=== PATIENT | male | born 1930 | race Caucasian/White ===

== ENCOUNTER → 2016-12-23 | Outpatient (CLI) | payer MEDICARE ==
[~2016-12-23] MED LIST: BISACODYL5 MG PO; COUMADIN3 MG GT; DULCOLAX5 MG PO; FEOSOL325 MG PO; MEN'S MULTI-VI1 EACH PO; MIRAPEX0.5 MG PO; MOTRIN400 MG GT; NORVASC5 MG GT; ONE DAILY1 EAC3 PO; OXYCODONE HCL5 MG GT; PRILOSEC20 MG PO; PROSCAR5 MG PO; Proscar PO; Protonix PO; SENNA LAXATIVE25 MG GT; SINEMET 25-1001 EACH GT; SINEMET 25-1001 EACH PO; TYLENOL EXTRA500 MG PO; TYLENOL REGULA325 MG GT
== END | disposition home or self-care (01) ==
LOC: CDC 10:06
DX: R00.1 Bradycardia, unspecified (principal); R94.31 Abnormal electrocardiogram [ECG] [EKG]; C67.9 Malignant neoplasm of bladder, unspecified
CPT/HCPCS: 93000

== ENCOUNTER 2017-05-29 11:37 | Inpatient (IN) | payer OTHER, MEDICARE ==
[~2017-05-29] VITALS: Ht 175.3 cm; Wt 78.5 kg
[2017-05-29] MEDS ORDERED: OMEPRAZOLE20 MG PO (11:49)
[2017-05-29] MEDS ORDERED: METOPROLOL TART25 MG PO (11:50)
[2017-05-29] MEDS ORDERED: COZAAR25 MG PO (11:52)
[2017-05-29 12:46] LABS: HEMATOCRIT 30.9 % (38.0-50.0); MCH 29.7 PG (29.0-34.0); MCHC 32.4 G/DL (30.0-36.0); MCV 91.7 FL (86-99); MEAN PLAT.VOLUME 9.8 uM^3 (9.0-12.4); PLATELET COUNT 149 K/uL (156-360); RBC DIS.WIDTH-CV 16.1 % (11.8-14.6); RBC DIS.WIDTH-SD 54.4 % (39-53); RED BLOOD COUNT 3.37 M/uL (4.00-5.50); WHITE BLOOD COUNT 5.4 K/uL (4.1-10.2)
[2017-05-29 12:52] LABS: PROTHROMBIN TIME 11.1 SEC (10.2-12.9)
[2017-05-29 12:57] LABS: CHLORIDE 104 mEq/L (99-109); POTASSIUM 4.1 mEq/L (3.7-5.4); SODIUM 135 mEq/L (136-147)
[2017-05-29 13:00] LABS: GLUCOSE 149 mg/dL (70-99)
[2017-05-29 13:01] LABS: ANION GAP 8 MEQ/L (2-14); TOTAL BILIRUBIN 0.7 mg/dL (0.0-1.0)
[2017-05-29 13:03] LABS: ALKALINE PHOSPHATASE 88 IU/L (3-129); GFR ESTIMATE (CALCULATED) 51 mL/min/
[2017-05-29 13:04] LABS: UREA NITROGEN (BUN) 49 mg/dL (9-23)
[2017-05-29 16:18] VITALS: BP 135/72
[2017-05-29 19:23] VITALS: BP 114/68
[2017-05-30 00:10] VITALS: BP 110/60
[2017-05-30 04:25] VITALS: BP 95/54
[2017-05-30 06:26] LABS: HEMATOCRIT 27.3 % (38.0-50.0); MCH 30.5 PG (29.0-34.0); MCV 92.5 FL (86-99); MEAN PLAT.VOLUME 10.2 uM^3 (9.0-12.4); PLATELET COUNT 134 K/uL (156-360); RBC DIS.WIDTH-CV 16.4 % (11.8-14.6); RBC DIS.WIDTH-SD 56.1 % (39-53); RED BLOOD COUNT 2.95 M/uL (4.00-5.50); WHITE BLOOD COUNT 6.1 K/uL (4.1-10.2)
[2017-05-30 06:59] LABS: ANION GAP 4 MEQ/L (2-14); CHLORIDE 103 MEQ/L (99-109); GFR ESTIMATE (CALCULATED) > 59 mL/min/; POTASSIUM 4.1 MEQ/L (3.7-5.4); SAMPLE HEMOLYSIS CHECK 0; SAMPLE ICTERIC CHECK 0; SAMPLE LIPEMIA CHECK 0; SODIUM 132 MEQ/L (136-147); UREA NITROGEN (BUN) 39 mg/dL (9-23)
[2017-05-30 07:12] LABS: GLUCOSE 109 mg/dL (70-99)
[2017-05-30 08:00] VITALS: BP 105/55
[2017-05-30 08:42] LABS: POINT-OF-CARE METER ID UU14117124
[2017-05-30 16:06] VITALS: BP 117/60
[2017-05-30 19:24] VITALS: BP 103/56
[2017-05-30 21:00] VITALS: BP 108/59
[2017-05-31 00:33] VITALS: BP 97/54
[2017-05-31 04:35] VITALS: BP 139/61
[2017-05-31 06:45] LABS: EOSINOPHIL (%) 0.4 % (0-5); HEMATOCRIT 25.4 % (38.0-50.0); IMMATURE GRANULOCYTE (%) 0.5 % (0.0-0.7); INSTRUMENT ABS NEUTROPHIL CT 6.5 K/uL; LYMPHOCYTE COUNT 0.5 K/uL (1.0-2.8); MCH 29.2 PG (29.0-34.0); MCHC 31.5 G/DL (30.0-36.0); MCV 92.7 FL (86-99); MEAN PLAT.VOLUME 10.2 uM^3 (9.0-12.4); MONOCYTE (%) 10.5 % (3-12); MONOCYTE COUNT 0.8 K/uL (0-0.8); NEUTROPHIL (%) 81.9 % (45-76); NEUTROPHIL COUNT 6.5 K/uL (1.8-6.4); PLATELET COUNT 122 K/uL (156-360); RBC DIS.WIDTH-CV 16.3 % (11.8-14.6); RBC DIS.WIDTH-SD 55.8 % (39-53); RED BLOOD COUNT 2.74 M/uL (4.00-5.50)
[2017-05-31 07:11] LABS: ANION GAP 5 MEQ/L (2-14); CHLORIDE 105 MEQ/L (99-109); GFR ESTIMATE (CALCULATED) > 59 mL/min/; GLUCOSE 126 mg/dL (70-99); POTASSIUM 4.4 MEQ/L (3.7-5.4); SAMPLE HEMOLYSIS CHECK 0; SAMPLE ICTERIC CHECK 0; SAMPLE LIPEMIA CHECK 0; SODIUM 136 MEQ/L (136-147); UREA NITROGEN (BUN) 26 mg/dL (9-23)
[2017-05-31 08:34] VITALS: BP 83/46
[2017-05-31 15:38] VITALS: BP 108/57
[2017-05-31 19:38] VITALS: BP 99/52
[2017-06-01] VITALS (8 sets, daily range): BP systolic 106–123; BP diastolic 53–69
[2017-06-01 06:30] LABS: HEMATOCRIT 24.5 % (38.0-50.0); MCHC 32.2 G/DL (30.0-36.0); MCV 93.2 FL (86-99); MEAN PLAT.VOLUME 10.7 uM^3 (9.0-12.4); PLATELET COUNT 130 K/uL (156-360); RBC DIS.WIDTH-CV 16.4 % (11.8-14.6); RBC DIS.WIDTH-SD 56.4 % (39-53); RED BLOOD COUNT 2.63 M/uL (4.00-5.50); WHITE BLOOD COUNT 6.7 K/uL (4.1-10.2)
[2017-06-02 03:39] VITALS: BP 99/52
[2017-06-02 05:15] VITALS: BP 112/68
[2017-06-02 05:15] LABS: HEMATOCRIT 23.3 % (38.0-50.0); MCH 30.3 PG (29.0-34.0); MCHC 32.6 G/DL (30.0-36.0); MCV 92.8 FL (86-99); MEAN PLAT.VOLUME 10.6 uM^3 (9.0-12.4); PLATELET COUNT 137 K/uL (156-360); RBC DIS.WIDTH-CV 16.5 % (11.8-14.6); RBC DIS.WIDTH-SD 56.4 % (39-53); RED BLOOD COUNT 2.51 M/uL (4.00-5.50); WHITE BLOOD COUNT 5.7 K/uL (4.1-10.2)
[2017-06-02 05:41] LABS: ANION GAP 6 MEQ/L (2-14); CHLORIDE 106 MEQ/L (99-109); GFR ESTIMATE (CALCULATED) > 59 mL/min/; GLUCOSE 103 mg/dL (70-99); SAMPLE HEMOLYSIS CHECK 0; SAMPLE ICTERIC CHECK 0; SAMPLE LIPEMIA CHECK 0; SODIUM 138 MEQ/L (136-147); UREA NITROGEN (BUN) 31 mg/dL (9-23)
[2017-06-02 07:00] VITALS: BP 126/68
[2017-06-02] MEDS ORDERED: FERROUS SULFAT325 MG PO (10:43)
[2017-06-02] MEDS ORDERED: DOCUSATE SODIU100 MG PO (10:45)
[2017-06-02] MEDS ORDERED: POLYETHYLENE GL17 GM PO (10:45)
[2017-06-02 10:47] LABS: IRON 17 MCG/DL (35-150)
[2017-06-02] MEDS ORDERED: HEPARIN SO5000 UNIT4 SC (10:52)
[2017-06-02] MEDS ORDERED: ENDOCET 5-3251 EACH PO (10:52)
[2017-06-02 12:05] VITALS: BP 126/64
== END 2017-06-02 15:40 | DRG 536 ==
LOC: EME → EDBD 11:37 → EME 11:37 → EDOF 14:54 → 3EAST 14:54 → ENRESERV 14:55 → 3EAST 16:02
PROVIDERS: Emergency Medicine; Internal Medicine
PROC: 0SS934Z Reposition Right Hip Joint with Internal Fixation Device, Percutaneous Approach (ICD-10-PCS; principal; 2017-05-30)
DX: S72.141A Displaced intertrochanteric fracture of right femur, initial encounter for closed fracture (principal); W01.0XXA Fall on same level from slipping, tripping and stumbling without subsequent striking against object, initial encounter; D50.9 Iron deficiency anemia, unspecified; Z95.0 Presence of cardiac pacemaker; I12.9 Hypertensive chronic kidney disease with stage 1 through stage 4 chronic kidney disease, or unspecified chronic kidney disease; Y92.89 Other specified places as the place of occurrence of the external cause; G20 Parkinson's disease; Z85.51 Personal history of malignant neoplasm of bladder; N40.0 Benign prostatic hyperplasia without lower urinary tract symptoms; I35.0 Nonrheumatic aortic (valve) stenosis; I27.2 Other secondary pulmonary hypertension; Z96.652 Presence of left artificial knee joint; N18.2 Chronic kidney disease, stage 2 (mild)
CPT/HCPCS: 71010; 73502; 76000; 80048; 80053; 82607; 82746; 82948; 83540; 84466; 85025; 85027; 85610; 86341 90; 86850; 86900; 86901; 88305; 93005; 97530 GP; 99281; 99285; C1713; J0131; J0690; J1100; J1170; J1644; J2270; J2405; J2710; J3010; J7030

== ENCOUNTER 2017-08-17 21:52 | Inpatient (IN) | payer OTHER, MEDICARE ==
[~2017-08-17] VITALS: Ht 175.3 cm; Wt 86.0 kg
[~2017-08-17 21:52] MED LIST changes: +COZAAR25 MG PO; +DOCUSATE SODIU100 MG PO; +ENDOCET 5-3251 EACH PO; +FERROUS SULFAT325 MG PO; +HEPARIN SO5000 UNIT4 SC; +METOPROLOL TART25 MG PO; +OMEPRAZOLE20 MG PO; +POLYETHYLENE GL17 GM PO
[2017-08-17 23:30] LABS: EOSINOPHIL (%) 0.4 % (0-5); HEMATOCRIT 29.3 % (38.0-50.0); IMMATURE GRANULOCYTE (%) 0.4 % (0.0-0.7); INSTRUMENT ABS NEUTROPHIL CT 8.7 K/uL; LYMPHOCYTE COUNT 0.7 K/uL (1.0-2.8); MCH 31.3 PG (29.0-34.0); MCHC 32.8 G/DL (30.0-36.0); MEAN PLAT.VOLUME 10.2 uM^3 (9.0-12.4); MONOCYTE (%) 7.1 % (3-12); MONOCYTE COUNT 0.7 K/uL (0-0.8); NEUTROPHIL (%) 85.3 % (45-76); NEUTROPHIL COUNT 8.7 K/uL (1.8-6.4); PLATELET COUNT 171 K/uL (156-360); RBC DIS.WIDTH-CV 14.6 % (11.8-14.6); RBC DIS.WIDTH-SD 51.7 % (39-53); RED BLOOD COUNT 3.07 M/uL (4.00-5.50); WHITE BLOOD COUNT 10.2 K/uL (4.1-10.2)
[2017-08-17 23:37] LABS: MCV 95.4 FL (86-99)
[2017-08-17 23:39] LABS: INTER. NORMALIZED RATIO 1.1
[2017-08-17 23:42] LABS: CHLORIDE 107 mEq/L (99-109); POTASSIUM 4.2 mEq/L (3.7-5.4); SODIUM 137 mEq/L (136-147)
[2017-08-17 23:44] LABS: GLUCOSE 114 mg/dL (70-99)
[2017-08-17 23:45] LABS: ANION GAP 8 MEQ/L (2-14)
[2017-08-17 23:46] LABS: TOTAL BILIRUBIN 0.4 mg/dL (0.0-1.0)
[2017-08-17 23:47] LABS: ALKALINE PHOSPHATASE 111 IU/L (3-129)
[2017-08-17 23:48] LABS: GFR ESTIMATE (CALCULATED) 44 mL/min/
[2017-08-17 23:49] LABS: UREA NITROGEN (BUN) 52 mg/dL (9-23)
[2017-08-18] VITALS (10 sets, daily range): BP systolic 88–121; BP diastolic 53–68
[2017-08-18] MEDS ORDERED: FERROUS SULFAT325 MG PO (00:33)
[2017-08-18] MEDS ORDERED: CARBIDOPA/LEVO1 EACH PO (00:34)
[2017-08-18] MEDS ORDERED: FINASTERIDE5 MG PO (00:34)
[2017-08-18] MEDS ORDERED: PRAMIPEXOLE DI0.5 MG PO (00:37)
[2017-08-18 04:48] LABS: MCH 30.7 PG (29.0-34.0); MCV 95.8 FL (86-99); MEAN PLAT.VOLUME 10.4 uM^3 (9.0-12.4); PLATELET COUNT 144 K/uL (156-360); RBC DIS.WIDTH-CV 14.7 % (11.8-14.6); RBC DIS.WIDTH-SD 51.8 % (39-53); RED BLOOD COUNT 2.61 M/uL (4.00-5.50); WHITE BLOOD COUNT 7.5 K/uL (4.1-10.2)
[2017-08-18 05:01] LABS: CHLORIDE 111 mEq/L (99-109); POTASSIUM 4.1 mEq/L (3.7-5.4); SODIUM 140 mEq/L (136-147)
[2017-08-18 05:02] LABS: GLUCOSE 114 mg/dL (70-99)
[2017-08-18 05:04] LABS: ANION GAP 8 MEQ/L (2-14)
[2017-08-18 05:06] LABS: GFR ESTIMATE (CALCULATED) 56 mL/min/
[2017-08-18 05:07] LABS: UREA NITROGEN (BUN) 46 mg/dL (9-23)
[2017-08-18 06:49] LABS: POINT-OF-CARE METER ID UU14314088
[2017-08-18 11:55] LABS: POINT-OF-CARE METER ID UU14314088
[2017-08-18 12:59] LABS: ADD MIUA? YES; BILIRUBIN NEGATIVE; BLOOD LARGE; COLOR YELLOW ((YELLOW)); GLUCOSE (STRIP) NEGATIVE; KETONES NEGATIVE; LEUKOCYTES TRACE; NITRITE NEGATIVE; PROTEIN (STRIP) NEGATIVE; SPECIFIC GRAVITY 1.019 (1.000-1.030); UROBILINOGEN 0.2 MG/DL (0.2-1.0)
[2017-08-18 13:31] LABS: BACTERIA RARE /HPF; BUDDING YEAST RARE; EPITHELIAL CELLS RARE /HPF; MUCUS TRACE /LPF; RED BLOOD CELLS 40-50 /HPF (0-5); UCUL ADDED? YES
[2017-08-18 20:23] LABS: HEMATOCRIT 28.9 % (38.0-50.0); MCV 93.2 FL (86-99)
[2017-08-19] VITALS (7 sets, daily range): BP systolic 85–111; BP diastolic 50–58
[2017-08-19 05:29] LABS: EOSINOPHIL (%) 0.2 % (0-5); IMMATURE GRANULOCYTE (%) 0.5 % (0.0-0.7); INSTRUMENT ABS NEUTROPHIL CT 6.9 K/uL; LYMPHOCYTE COUNT 0.7 K/uL (1.0-2.8); MCH 30.1 PG (29.0-34.0); MCHC 32.7 G/DL (30.0-36.0); MCV 92.2 FL (86-99); MEAN PLAT.VOLUME 10.6 uM^3 (9.0-12.4); MONOCYTE (%) 10.5 % (3-12); MONOCYTE COUNT 0.9 K/uL (0-0.8); NEUTROPHIL COUNT 6.9 K/uL (1.8-6.4); PLATELET COUNT 116 K/uL (156-360); RBC DIS.WIDTH-CV 17.4 % (11.8-14.6); RBC DIS.WIDTH-SD 58.9 % (39-53); RED BLOOD COUNT 2.82 M/uL (4.00-5.50); WHITE BLOOD COUNT 8.6 K/uL (4.1-10.2)
[2017-08-19 05:51] LABS: ALKALINE PHOSPHATASE 73 IU/L (3-129); ANION GAP 7 MEQ/L (2-14); CHLORIDE 113 MEQ/L (99-109); GFR ESTIMATE (CALCULATED) > 59 mL/min/; GLUCOSE 100 mg/dL (70-99); POTASSIUM 4.3 MEQ/L (3.7-5.4); SAMPLE HEMOLYSIS CHECK 0; SAMPLE ICTERIC CHECK 0; SAMPLE LIPEMIA CHECK 0; SODIUM 142 MEQ/L (136-147); TOTAL BILIRUBIN 1.2 MG/DL (0.0-1.0); UREA NITROGEN (BUN) 34 mg/dL (9-23)
[2017-08-20] VITALS (8 sets, daily range): BP systolic 89–113; BP diastolic 52–67
[2017-08-20 06:08] LABS: BASOPHIL COUNT 0.1 K/uL (0-0.1); EOSINOPHIL (%) 1.5 % (0-5); EOSINOPHIL COUNT 0.1 K/uL (0-0.3); HEMATOCRIT 23.7 % (38.0-50.0); IMMATURE GRANULOCYTE (%) 0.6 % (0.0-0.7); IMMATURE GRANULOCYTE COUNT 0.1 K/uL; INSTRUMENT ABS NEUTROPHIL CT 7.1 K/uL; LYMPHOCYTE COUNT 0.6 K/uL (1.0-2.8); MCH 29.6 PG (29.0-34.0); MCHC 31.6 G/DL (30.0-36.0); MCV 93.7 FL (86-99); MEAN PLAT.VOLUME 11.1 uM^3 (9.0-12.4); MONOCYTE (%) 10.3 % (3-12); MONOCYTE COUNT 0.9 K/uL (0-0.8); NEUTROPHIL (%) 80.3 % (45-76); NEUTROPHIL COUNT 7.1 K/uL (1.8-6.4); PLATELET COUNT 106 K/uL (156-360); RBC DIS.WIDTH-CV 16.6 % (11.8-14.6); RBC DIS.WIDTH-SD 57.7 % (39-53); RED BLOOD COUNT 2.53 M/uL (4.00-5.50); WHITE BLOOD COUNT 8.8 K/uL (4.1-10.2)
[2017-08-20 06:43] LABS: ALKALINE PHOSPHATASE 69 IU/L (3-129); ANION GAP 6 MEQ/L (2-14); CHLORIDE 110 MEQ/L (99-109); GFR ESTIMATE (CALCULATED) > 59 mL/min/; GLUCOSE 127 mg/dL (70-99); SAMPLE HEMOLYSIS CHECK 0; SAMPLE ICTERIC CHECK 0; SAMPLE LIPEMIA CHECK 0; SODIUM 139 MEQ/L (136-147); UREA NITROGEN (BUN) 34 mg/dL (9-23)
[2017-08-20 06:58] LABS: TOTAL BILIRUBIN 0.9 MG/DL (0.0-1.0)
[2017-08-20 18:45] LABS: HEMATOCRIT 24.4 % (38.0-50.0); MCV 91.4 FL (86-99)
[2017-08-21] VITALS (14 sets, daily range): BP systolic 82–123; BP diastolic 42–66
[2017-08-21 04:39] LABS: EOSINOPHIL (%) 2.7 % (0-5); EOSINOPHIL COUNT 0.2 K/uL (0-0.3); HEMATOCRIT 22.6 % (38.0-50.0); IMMATURE GRANULOCYTE (%) 0.6 % (0.0-0.7); INSTRUMENT ABS NEUTROPHIL CT 4.9 K/uL; LYMPHOCYTE COUNT 0.9 K/uL (1.0-2.8); MCHC 33.2 G/DL (30.0-36.0); MCV 90.4 FL (86-99); MEAN PLAT.VOLUME 10.5 uM^3 (9.0-12.4); MONOCYTE (%) 9.5 % (3-12); MONOCYTE COUNT 0.6 K/uL (0-0.8); NEUTROPHIL (%) 73.3 % (45-76); NEUTROPHIL COUNT 4.9 K/uL (1.8-6.4); PLATELET COUNT 87 K/uL (156-360); RBC DIS.WIDTH-CV 17.2 % (11.8-14.6); RBC DIS.WIDTH-SD 57.5 % (39-53); WHITE BLOOD COUNT 6.7 K/uL (4.1-10.2)
[2017-08-21 04:53] LABS: CHLORIDE 112 mEq/L (99-109); POTASSIUM 3.6 mEq/L (3.7-5.4); SODIUM 139 mEq/L (136-147)
[2017-08-21 04:56] LABS: GLUCOSE 106 mg/dL (70-99)
[2017-08-21 04:57] LABS: ANION GAP 3 MEQ/L (2-14)
[2017-08-21 04:59] LABS: ALKALINE PHOSPHATASE 89 IU/L (3-129); GFR ESTIMATE (CALCULATED) > 59 mL/min/ (58.99-99999)
[2017-08-21 05:00] LABS: UREA NITROGEN (BUN) 29 mg/dL (9-23)
[2017-08-21 05:04] LABS: TOTAL BILIRUBIN 1.2 mg/dL (0.0-1.0)
[2017-08-21 10:30] LABS: INTER. NORMALIZED RATIO 1.1; PROTHROMBIN TIME 12.7 SEC (10.2-12.9)
[2017-08-21 10:33] LABS: PTT 31.1 SEC (25-37)
[2017-08-21 16:08] LABS: HEMATOCRIT 25.8 % (38.0-50.0); MCH 29.8 PG (29.0-34.0); MCHC 32.6 G/DL (30.0-36.0); MCV 91.5 FL (86-99); MEAN PLAT.VOLUME 10.6 uM^3 (9.0-12.4); RBC DIS.WIDTH-CV 16.8 % (11.8-14.6); RBC DIS.WIDTH-SD 56.8 % (39-53); RED BLOOD COUNT 2.82 M/uL (4.00-5.50); WHITE BLOOD COUNT 6.5 K/uL (4.1-10.2)
[2017-08-21 16:30] LABS: ANION GAP 7 MEQ/L (2-14); CHLORIDE 107 MEQ/L (99-109); GFR ESTIMATE (CALCULATED) > 59 mL/min/ (58.99-99999); GLUCOSE 107 mg/dL (70-99); POTASSIUM 3.9 MEQ/L (3.7-5.4); SAMPLE HEMOLYSIS CHECK 0; SAMPLE ICTERIC CHECK 0; SAMPLE LIPEMIA CHECK 0; SODIUM 137 MEQ/L (136-147); UREA NITROGEN (BUN) 33 mg/dL (9-23)
[2017-08-21 17:16] LABS: PLATELET COUNT 122 K/uL (156-360)
[2017-08-22 04:14] VITALS: BP 129/68
[2017-08-22 05:49] LABS: EOSINOPHIL (%) 3.7 % (0-5); EOSINOPHIL COUNT 0.2 K/uL (0-0.3); IMMATURE GRANULOCYTE (%) 0.2 % (0.0-0.7); INSTRUMENT ABS NEUTROPHIL CT 4.7 K/uL; LYMPHOCYTE COUNT 0.8 K/uL (1.0-2.8); MCH 30.4 PG (29.0-34.0); MCHC 33.1 G/DL (30.0-36.0); MCV 91.9 FL (86-99); MEAN PLAT.VOLUME 11.2 uM^3 (9.0-12.4); MONOCYTE COUNT 0.5 K/uL (0-0.8); NEUTROPHIL (%) 75.5 % (45-76); NEUTROPHIL COUNT 4.7 K/uL (1.8-6.4); PLATELET COUNT 131 K/uL (156-360); RBC DIS.WIDTH-CV 16.6 % (11.8-14.6); RBC DIS.WIDTH-SD 55.9 % (39-53); RED BLOOD COUNT 2.83 M/uL (4.00-5.50); WHITE BLOOD COUNT 6.2 K/uL (4.1-10.2)
[2017-08-22 05:54] LABS: INTER. NORMALIZED RATIO 1.1; PROTHROMBIN TIME 12.5 SEC (10.2-12.9)
[2017-08-22 05:57] LABS: PTT 28.7 SEC (25-37)
[2017-08-22 06:17] LABS: ANION GAP 6 MEQ/L (2-14); CHLORIDE 107 MEQ/L (99-109); GFR ESTIMATE (CALCULATED) > 59 mL/min/ (58.99-99999); GLUCOSE 96 mg/dL (70-99); POTASSIUM 3.8 MEQ/L (3.7-5.4); SAMPLE HEMOLYSIS CHECK 0; SAMPLE ICTERIC CHECK 0; SAMPLE LIPEMIA CHECK 0; SODIUM 138 MEQ/L (136-147); UREA NITROGEN (BUN) 34 mg/dL (9-23)
[2017-08-22 06:19] LABS: ALKALINE PHOSPHATASE 116 IU/L (3-129); TOTAL BILIRUBIN 1.6 MG/DL (0.0-1.0)
[2017-08-22 09:00] VITALS: BP 121/64
[2017-08-22 11:50] VITALS: BP 132/69
[2017-08-22 15:26] VITALS: BP 137/74
[2017-08-22 19:10] VITALS: BP 110/58
[2017-08-22 23:17] VITALS: BP 123/71
[2017-08-23 04:00] VITALS: BP 131/71
[2017-08-23 05:57] LABS: EOSINOPHIL (%) 3.6 % (0-5); EOSINOPHIL COUNT 0.2 K/uL (0-0.3); IMMATURE GRANULOCYTE (%) 0.5 % (0.0-0.7); INSTRUMENT ABS NEUTROPHIL CT 4.4 K/uL; LYMPHOCYTE COUNT 0.8 K/uL (1.0-2.8); MCH 29.8 PG (29.0-34.0); MCHC 32.3 G/DL (30.0-36.0); MCV 92.2 FL (86-99); MEAN PLAT.VOLUME 10.6 uM^3 (9.0-12.4); MONOCYTE (%) 9.7 % (3-12); MONOCYTE COUNT 0.6 K/uL (0-0.8); NEUTROPHIL (%) 72.1 % (45-76); NEUTROPHIL COUNT 4.4 K/uL (1.8-6.4); PLATELET COUNT 145 K/uL (156-360); RBC DIS.WIDTH-CV 15.9 % (11.8-14.6); RBC DIS.WIDTH-SD 54.1 % (39-53); RED BLOOD COUNT 2.82 M/uL (4.00-5.50); WHITE BLOOD COUNT 6.1 K/uL (4.1-10.2)
[2017-08-23 06:07] LABS: INTER. NORMALIZED RATIO 2.2
[2017-08-23 06:10] LABS: PROTHROMBIN TIME 25.3 SEC (10.2-12.9); PTT 32.1 SEC (25-37)
[2017-08-23 06:21] LABS: ANION GAP 8 MEQ/L (2-14); CHLORIDE 106 MEQ/L (99-109); GFR ESTIMATE (CALCULATED) > 59 mL/min/ (58.99-99999); GLUCOSE 93 mg/dL (70-99); POTASSIUM 3.5 MEQ/L (3.7-5.4); SAMPLE HEMOLYSIS CHECK 0; SAMPLE ICTERIC CHECK 0; SAMPLE LIPEMIA CHECK 0; SODIUM 139 MEQ/L (136-147); UREA NITROGEN (BUN) 32 mg/dL (9-23)
[2017-08-23 08:40] VITALS: BP 118/70
[2017-08-23 11:53] VITALS: BP 135/65
[2017-08-23 17:05] VITALS: BP 108/56
[2017-08-23 20:30] VITALS: BP 124/67
[2017-08-23 23:51] VITALS: BP 139/75
[2017-08-24 03:55] VITALS: BP 137/70
[2017-08-24 07:57] LABS: INTER. NORMALIZED RATIO 3.1; PROTHROMBIN TIME 35.3 SEC (10.2-12.9)
[2017-08-24 08:17] VITALS: BP 128/62
[2017-08-24 09:31] LABS: HEMATOCRIT 29.4 % (38.0-50.0); MCH 29.8 PG (29.0-34.0); MCHC 32.3 G/DL (30.0-36.0); MCV 92.2 FL (86-99); RBC DIS.WIDTH-CV 15.5 % (11.8-14.6); RBC DIS.WIDTH-SD 52.7 % (39-53); RED BLOOD COUNT 3.19 M/uL (4.00-5.50); WHITE BLOOD COUNT 6.2 K/uL (4.1-10.2)
[2017-08-24 09:34] LABS: PLATELET COUNT 199 K/uL (156-360)
[2017-08-24 10:06] LABS: ANION GAP 8 MEQ/L (2-14); CHLORIDE 104 MEQ/L (99-109); GFR ESTIMATE (CALCULATED) > 59 mL/min/ (58.99-99999); GLUCOSE 112 mg/dL (70-99); POTASSIUM 3.9 MEQ/L (3.7-5.4); SAMPLE HEMOLYSIS CHECK 0; SAMPLE ICTERIC CHECK 0; SAMPLE LIPEMIA CHECK 0; SODIUM 137 MEQ/L (136-147); UREA NITROGEN (BUN) 35 mg/dL (9-23)
[2017-08-24 11:24] VITALS: BP 121/63
[2017-08-24 15:41] VITALS: BP 114/74
[2017-08-24 19:37] VITALS: BP 128/71
[2017-08-24 23:54] VITALS: BP 136/77
[2017-08-25 03:50] VITALS: BP 124/81
[2017-08-25 07:15] LABS: EOSINOPHIL (%) 3.4 % (0-5); EOSINOPHIL COUNT 0.2 K/uL (0-0.3); HEMATOCRIT 28.4 % (38.0-50.0); IMMATURE GRANULOCYTE (%) 0.4 % (0.0-0.7); INSTRUMENT ABS NEUTROPHIL CT 5.3 K/uL; LYMPHOCYTE COUNT 0.9 K/uL (1.0-2.8); MCH 30.1 PG (29.0-34.0); MCHC 32.4 G/DL (30.0-36.0); MCV 92.8 FL (86-99); MEAN PLAT.VOLUME 10.6 uM^3 (9.0-12.4); MONOCYTE (%) 8.3 % (3-12); MONOCYTE COUNT 0.6 K/uL (0-0.8); NEUTROPHIL (%) 74.9 % (45-76); NEUTROPHIL COUNT 5.3 K/uL (1.8-6.4); PLATELET COUNT 202 K/uL (156-360); RBC DIS.WIDTH-CV 15.6 % (11.8-14.6); RBC DIS.WIDTH-SD 52.4 % (39-53); RED BLOOD COUNT 3.06 M/uL (4.00-5.50); WHITE BLOOD COUNT 7.1 K/uL (4.1-10.2)
[2017-08-25 07:42] LABS: ANION GAP 8 MEQ/L (2-14); CHLORIDE 105 MEQ/L (99-109); GFR ESTIMATE (CALCULATED) > 59 mL/min/ (58.99-99999); GLUCOSE 86 mg/dL (70-99); POTASSIUM 3.6 MEQ/L (3.7-5.4); SAMPLE HEMOLYSIS CHECK 0; SAMPLE ICTERIC CHECK 0; SAMPLE LIPEMIA CHECK 0; SODIUM 138 MEQ/L (136-147); UREA NITROGEN (BUN) 38 mg/dL (9-23)
[2017-08-25 07:44] LABS: INTER. NORMALIZED RATIO 2.5; PROTHROMBIN TIME 28.9 SEC (10.2-12.9)
[2017-08-25 08:06] VITALS: BP 115/62
[2017-08-25 12:17] VITALS: BP 124/70
[2017-08-25] MEDS ORDERED: COUMADIN1 MG PO ×2 (14:36→14:47)
[2017-08-25] MEDS ORDERED: HYDROCODON-ACE1 EAC7 PO (14:41)
[2017-08-25] MEDS ORDERED: TYLENOL EXTRA500 MG PO (14:41)
== END 2017-08-25 16:33 | DRG 481 ==
LOC: EME → EDBD 21:52 → EME 21:52 → EDOF 08-18 01:29 → 4EAST 08-18 01:29 → ENRESERV 08-18 01:33 → 4EAST 08-18 03:24 → ENRESERV 08-23 09:47 → 3EAST 08-23 15:54
PROVIDERS: Anesthesiology; Emergency Medicine; Hospitalist; Orthopaedic Surgery; Physician Assistant
PROC: 0QS704Z Reposition Left Upper Femur with Internal Fixation Device, Open Approach (ICD-10-PCS; principal; 2017-08-18)
DX: S72.002A Fracture of unspecified part of neck of left femur, initial encounter for closed fracture (principal); I47.1 Supraventricular tachycardia; I95.2 Hypotension due to drugs; I27.20 Pulmonary hypertension, unspecified; I12.9 Hypertensive chronic kidney disease with stage 1 through stage 4 chronic kidney disease, or unspecified chronic kidney disease; G20 Parkinson's disease; W01.0XXA Fall on same level from slipping, tripping and stumbling without subsequent striking against object, initial encounter; N18.3 Chronic kidney disease, stage 3 (moderate); I35.0 Nonrheumatic aortic (valve) stenosis; N40.0 Benign prostatic hyperplasia without lower urinary tract symptoms; I49.5 Sick sinus syndrome; Z96.652 Presence of left artificial knee joint; D64.9 Anemia, unspecified; K21.9 Gastro-esophageal reflux disease without esophagitis; Z79.899 Other long term (current) drug therapy; Z95.0 Presence of cardiac pacemaker; Z85.51 Personal history of malignant neoplasm of bladder; M25.552 Pain in left hip; Z92.21 Personal history of antineoplastic chemotherapy; Z88.2 Allergy status to sulfonamides; R19.7 Diarrhea, unspecified; Z89.421 Acquired absence of other right toe(s)
CPT/HCPCS: 71010; 73502; 73552; 76000; 80048; 80048 91; 80053; 81003; 82948; 85014; 85018; 85025; 85027; 85610; 85730; 86850; 86900; 86901; 86920; 87086; 93005; 94010; 99202; 99281; 99285; C1713; J0690; J1650; J1940; J2270; J2405; J3010; J7030; J7042; J7050; J7120; P9016; P9037